=== PATIENT | male | born 1930 | race Hispanic/Latino ===

== ENCOUNTER 2017-05-31 07:51 | Inpatient (IN) | payer MEDICARE ==
[~2017-05-31] VITALS: Ht 175.3 cm; Wt 59.6 kg
[2017-05-31] VITALS (8 sets, daily range): BP systolic 76–115; BP diastolic 29–74
[~2017-05-31 07:51] MED LIST: ACET1TAB25 PO; DOCU240C88 PO; DUTA0.5C15 PO; ESOM40CA54 PO; INSLAN SQ; METO-408 PO; TAMS0.4C32 PO
[2017-05-31] MEDS ORDERED: METHYLPREDNISOLONE SOD SUCC 125MG/2ML VIAL ONE (08:10)
[2017-05-31] MEDS ORDERED: IPRATROPIUM/ALBUTEROL SULFATE 3 ML SOLUTION IH ONE ×4 (08:14→10:46)
[2017-05-31 08:26] LABS: BASOPHILS % (AUTO) 0.4 % (0.0-5.0); HEMATOCRIT 25.1 % (42-54); LYMPHOCYTES % (AUTO) 2.3 % (21.0-51.0); MEAN CORPUSCULAR HEMOGLOBIN 28.1 pg (27.0-33.0); MEAN CORPUSCULAR HGB CONC 33.1 g/dL (32.0-36.0); MEAN CORPUSCULAR VOLUME 84.9 fL (79-99); MONOCYTES % (AUTO) 4.3 % (3.0-13.0); PLATELET COUNT (AUTO) 172 K/uL (130-400); RED BLOOD CELL COUNT(AUTO) 2.96 MIL/uL (4.50-6.20); RED CELL DISTRIBUTION WIDTH 17.5 % (11.0-15.5); WHITE BLOOD COUNT (AUTO) 15.6 K/uL (4.8-10.8)
[2017-05-31 08:33] LABS: CREATININE 4.1 mg/dL (0.5-1.5); POTASSIUM 3.9 mmol/L (3.5-5.1)
[2017-05-31 08:39] LABS: ALBUMIN 2.3 g/dL (3.5-5.0); BILIRUBIN,TOTAL 0.9 mg/dL (0.2-1.0); TOTAL PROTEIN, SERUM 7.1 g/dL (6.0-8.3)
[2017-05-31] MEDS ORDERED: SODIUM CHLORIDE 0.9% 1000ML 1,000 ML IV ONE (09:18)
[2017-05-31] MEDS ORDERED: LEVOFLOXACIN 750 MG/D5W 150 ML 150 ML ONE (09:18)
[2017-05-31] MEDS ORDERED: SODIUM BICARB 8.4% 50ML SYRINGE IVP ONE (12:00)
[2017-05-31] MEDS ORDERED: IPRATROPIUM/ALBUTEROL SULFATE 3 ML SOLUTION IH SCH (12:00)
[2017-05-31] MEDS ORDERED: DEXTROSE 50%-WATER 50 ML DISP.SYRIN IV ONE (12:00)
[2017-05-31] MEDS ORDERED: AMIODARONE HCL 900MG/18ML IV ONE (12:00)
[2017-05-31] MEDS ORDERED: EPINEPHRINE 0.1 MG/ML 10 ML SYG IVP ONE (12:00)
[2017-05-31] MEDS ORDERED: CEFTRIAXONE SODIUM 1 GM IVP SCH (12:00)
[2017-05-31] MEDS ORDERED: ZOSYN 3.375GM+NS 50ML 50 ML IV SCH (13:00)
[2017-05-31] MEDS ORDERED: VANCOMYCIN PROTOCOL PER PHARMACY IV SCH (13:00)
[2017-05-31] MEDS: MEROPENEM 500 MG VIAL IVP SCH ×2 (13:03→13:25)
[2017-05-31 13:19] LABS: ABG BASE EXCESS -15.7 mmol/L (-2.0-3.0); ABG HCO3 8.1 mmol/L (21.0-28.0); ABG OXYGEN SATURATION 99.7 % (95.0-99.0); ABG PCO2 < 18 mmHg (35-48)
[2017-05-31] MEDS ORDERED: NOREPINEPHRINE 4MG/NS 250ML 250 ML IV SCH (13:45)
[2017-05-31] MEDS ORDERED: SODIUM BICARB 8.4% 50ML SYRINGE IVP SCH (13:45)
[2017-05-31] MEDS ORDERED: VANCOMYCIN 1GM+NS 250ML 250 ML IV SCH (14:00)
[2017-05-31 16:18] LABS: ABG BASE EXCESS -18.3 mmol/L (-2.0-3.0); ABG HCO3 10.5 mmol/L (21.0-28.0); ABG OXYGEN SATURATION 99.4 % (95.0-99.0); ABG PCO2 37 mmHg (35-48)
== END 2017-05-31 16:23 | disposition expired | DRG 871 ==
LOC: EDH 07:51 → EDHIP 09:43 → 4CH 11:09 → 2BH 13:11
PROVIDERS: ADMIT Internal Medicine; ATTEND Internal Medicine
PROC: 5A09357 Assistance with Respiratory Ventilation, Less than 24 Consecutive Hours, Continuous Positive Airway Pressure (ICD-10-PCS; principal; 2017-05-31)
DX: A41.9 Sepsis, unspecified organism (principal); J18.9 Pneumonia, unspecified organism; J81.0 Acute pulmonary edema; J96.01 Acute respiratory failure with hypoxia; I12.0 Hypertensive chronic kidney disease with stage 5 chronic kidney disease or end stage renal disease; E87.2 Acidosis; E11.22 Type 2 diabetes mellitus with diabetic chronic kidney disease; D64.9 Anemia, unspecified; N18.6 End stage renal disease; E78.00 Pure hypercholesterolemia, unspecified; I25.10 Atherosclerotic heart disease of native coronary artery without angina pectoris; Y95 Nosocomial condition; Z99.2 Dependence on renal dialysis; Z90.79 Acquired absence of other genital organ(s); Z82.49 Family history of ischemic heart disease and other diseases of the circulatory system
CPT/HCPCS: 31500; 36415; 36600; 71045; 80053; 82330; 82435; 82803; 82947; 82948; 83605; 84132; 84295; 85018; 85025; 87040; 87186; 87804; 92950; 93005; 94640; 94660; 94664; A4218; J0171; J0282; J0696; J1956; J2185; J2930; J3370; J3490; J7030; J7070